=== PATIENT | female | born 1935 | race Caucasian/White ===

== ENCOUNTER 2022-04-29 13:36 | Emergency (ER) | payer OTHER, MEDICARE, BC ==
[~2022-04-29] VITALS: Ht 149.9 cm; Wt 51.3 kg
[2022-04-29] MEDS ORDERED: Norco 5-325 Ta1 EACH PO (15:28)
== END 2022-04-29 16:06 | disposition home or self-care (01) ==
LOC: ER 13:36
DX: S42.291A Other displaced fracture of upper end of right humerus, initial encounter for closed fracture (principal); W01.0XXA Fall on same level from slipping, tripping and stumbling without subsequent striking against object, initial encounter
CPT/HCPCS: 73030; 96372; 99283-25; A9270; J3010

== ENCOUNTER → 2022-07-04 | Outpatient (CLI) | payer MEDICARE, BC ==
[~2022-07-04] MED LIST: Norco 5-325 Ta1 EACH PO
[2022-07-04 16:18] LABS: U Opiates Screen DETECTED
[2022-07-04 16:19] LABS: U Amphetamine Screen Not Detected; U Barbituate Screen Not Detected; U Benzodiazapine Screen DETECTED; U Buprenorphine Screen Not Detected; U Cannabinoids Screen Not Detected; U Cocaine Screen Not Detected; U Methadone Screen Not Detected; U Methamphetamine Screen Not Detected; U Oxycodone Screen Not Detected; U Phencyclidine Screen Not Detected; U Propoxyphene Screen Not Detected
== END | disposition home or self-care (01) ==
LOC: LAB SHORT 14:31
PROVIDERS: Physician Assistant Medical
DX: G89.4 Chronic pain syndrome (principal); Z79.891 Long term (current) use of opiate analgesic

== ENCOUNTER → 2022-10-17 | Outpatient (CLI) | payer MEDICARE, BC | END | disposition home or self-care (01) | LOC: LAB SHORT 11:06 → LAB 11:06 | DX: R30.0 Dysuria (principal) | CPT/HCPCS: 87077; 87086; 87186 ==